=== PATIENT | female | born 1935 | race Caucasian/White ===

== ENCOUNTER → 2018-02-07 | Outpatient (CLI) | payer MEDICARE ==
--- NOTE | 2018-02-08 10:49 | MM ---
Reason for exam: screening (asymptomatic). Last mammogram was performed 2 years and 9 months ago. History: Patient is postmenopausal. Family history of breast cancer in sister at age 55. Benign excisional biopsy of the left breast, 1969. Physical Findings: A clinical breast exam by your physician is recommended on an annual basis and results should be correlated with mammographic findings. MG 3D Screening Mammo W/Cad Bilateral CC and MLO view(s) were taken. Prior study comparison: May 09, 2015, bilateral MG screening mammo w CAD. November 15, 2012, mammogram, performed at [facility]. There are scattered fibroglandular densities. Benign appearing bilateral calcifications. No suspicious abnormality. Chronic bilateral nipple inversion. No significant changes when compared with prior studies. ASSESSMENT: Benign, BI-RAD 2 RECOMMENDATION: Routine screening mammogram of both breasts in 1 year.
== END | disposition home or self-care (01) ==
LOC: RADMAMWWP 10:45
PROVIDERS: ATTEND General Practice
DX: Z12.31 Encounter for screening mammogram for malignant neoplasm of breast (principal)
CPT/HCPCS: 77063; 77067

== ENCOUNTER → 2019-12-03 | Outpatient (CLI) | payer MEDICARE | END | disposition home or self-care (01) | LOC: LABWHC1 11:00 | PROVIDERS: ATTEND Internal Medicine Cardiovascular Disease | DX: U07.1 COVID-19 (principal) | CPT/HCPCS: 87635 ==

== ENCOUNTER 2019-12-05 07:56 | Day surgery (SDC) | payer MEDICARE, OTHER ==
[~2019-12-05 07:56] MED LIST: ALPRAZolam 0.25 MG TAB PO PRN; ALPRAZolam 0.5 MG TAB PO PRN; ASPIRIN 325 MG TAB PO STA; ATORVASTATIN 80 MG TAB PO STA; NITROGLYCERIN SL TABS 0.4 MG TAB SUBLINGUAL PRN; SODIUM CHLORIDE 0.9% 1,000 ML in EMPTY BAG 1 BAG IV ONE
[2019-12-05 08:25] LABS: Glucose,Whole Blood 208 mg/dL (75-99)
[2019-12-05] MEDS ORDERED: INSULIN ASPART (NovoLOG) 100 UNIT/ML VIAL SQ ONE (08:32)
[2019-12-05 08:34] LABS: Basophils % (A) 0 %; Eosinophils # (A) 0.3 k/uL (0-0.7); Eosinophils % (A) 4 %; HCT 40.1 % (34.0-46.0); HGB 12.9 gm/dL (11.4-16.0); Lymphocytes # (A) 2.5 k/uL (1.0-4.8); Lymphocytes % (A) 33 %; MCH 30.6 pg (25.0-35.0); MCHC 32.1 g/dL (31.0-37.0); MCV 95.3 fL (80.0-100.0); Mean Platelet Volume 7.6; Monocytes # (A) 0.4 k/uL (0-1.0); Monocytes % (A) 5 %; Neutrophils # (A) 4.4 k/uL (1.3-7.7); Neutrophils % (A) 57 %; Platelet Count 186 k/uL (150-450); RBC 4.21 m/uL (3.80-5.40); WBC 7.8 k/uL (3.8-10.6)
[2019-12-05 08:46] LABS: Calcium 9.6 mg/dL (8.4-10.2); Potassium 4.3 mmol/L (3.5-5.1)
[2019-12-05] MEDS ORDERED: LIDOCAINE 1% INJ 10MG/ML (20 ML MDV) ONE (09:40)
[2019-12-05] MEDS ORDERED: MIDAZOLAM 2 MG/2 ML VIAL IVP ONE (09:51)
[2019-12-05] MEDS ORDERED: LIDOCAINE 1% INJ 10MG/ML (20 ML MDV) SQ ONE (09:53)
[2019-12-05] MEDS ORDERED: fentaNYL (PF) 50 MCG/ML 2 ML AMP ONE (10:09)
[2019-12-05] MEDS ORDERED: CLOPIDOGREL 75 MG TAB ONE (10:11)
[2019-12-05] MEDS ORDERED: fentaNYL (PF) 50 MCG/ML 2 ML AMP IVP ONE (10:11)
[2019-12-05] MEDS ORDERED: BIVALIRUDIN BOLUS 250 MG/50 ML IV ONE (10:19)
[2019-12-05] MEDS ORDERED: DEXTROSE 5% IN WATER 100 ML with AMIODARONE 150 MG IV ONE (10:19)
[2019-12-05] MEDS: NITROGLYCERIN 1000MCG/10ML SYRINGE INTRACORON ONE ×2 (10:26→10:33)
[2019-12-05] MEDS ORDERED: niCARdipine 25 MG/10 ML VIAL ONE (10:33)
[2019-12-05] MEDS ORDERED: niCARdipine Syringe (1,000 mcg/10 mL) INTRACORON ONE (10:36)
[2019-12-05] MEDS ORDERED: IOPAMIDOL-370 125ML BTL INJ ONE (10:37)
[2019-12-05] MEDS ORDERED: NITROGLYCERIN SL TABS 0.4 MG TAB SUBLINGUAL PRN ×2 (10:44→10:56)
[2019-12-05] MEDS ORDERED: CLOPIDOGREL 75 MG TAB PO ONE (10:46)
--- NOTE | 2019-12-05 10:51 | P.PCN ---
Date of Procedure: 12/05/19 Operative Findings: PERCUTANEOUS CORONARY INTERVENTION Performing physician Dario Steele MD, RPVI Procedure performed Successful stenting of the mid left anterior descending artery using 3.25 x 15 mm Xience LESLIE with an excellent angiographic results and reduction of stenosis from 99% to 0% and without any complication Indication This is an 84-year-old female patient was in good physical and mental shape who was experiencing symptoms of chest discomfort concerning for angina patient underwent a heart catheterization by Dr. Pavon and that revealed critical disease involving the mid left anterior descending artery. The decision was made towards percutaneous coronary intervention Approach Right common femoral artery Complication None Level of sedation Moderate with sedation length of 27 minutes Procedure description Please refer to diagnostic heart catheterization was performed by Dr. Pavon earlier today Anticoagulation was initiated using Angiomax was bolused and drip per protocol Subsequently the left main was engaged using a JL 3.5 guide. After that I did cross the lesion in the LAD using a whisper J-wire. Balloon angioplasty was achieved using 2.5 x 12 mm balloon which was inflated under 16 manuel for 20 seconds before I deployed 3.25 x 15 mm Xience LESLIE where the stent was positioned under fluoroscopy guidance and deployed under 16 manuel for 20 seconds. The following angiogram showed an excellent angiographic results and the procedure was completed without any complications Postprocedure management 1. Dual antiplatelet therapy 2. Risk factors modification 3. Follow-up with the patient
[2019-12-05] MEDS ORDERED: MAG HYDROX/AL HYDROX/SIMETH 30 ML CUP PO PRN (10:56)
[2019-12-05] MEDS ORDERED: ATROPINE SULFATE 0.1 MG/ML 10ML SYRINGE IV PRN (10:56)
[2019-12-05] MEDS ORDERED: RX INFO: IV CONTRAST WAS GIVEN 1 EACH MISC MISCELLANE PRN (10:56)
[2019-12-05] MEDS ORDERED: ZOLPIDEM 5 MG TAB PO PRN (10:56)
[2019-12-05] MEDS ORDERED: SODIUM CHLORIDE 0.9% 1,000 ML IV SCH (11:00)
--- NOTE | 2019-12-05 11:09 | CC ---
CARDIAC CATHETERIZATION REPORT INDICATION: Unstable angina. This is an 84-year-old lady who presented to me with symptoms of precordial chest pain, underwent a stress test that did not reveal significant areas of ischemia, but due to persistent chest pain, I advised her to undergo cardiac catheterization. She had been explained of risks, benefits, and alternatives, understood and accepted. PROCEDURE NOTE: After obtaining informed consent, left heart catheterization, coronary angiogram are performed via the right femoral artery standard Mikaela catheters. Patient tolerated the procedure well without any obvious immediate complication. The patient received moderate conscious sedation and total sedation time was 15 minutes. FINDINGS: HEMODYNAMICS: Left ventricular end-diastolic pressure is 12-14 mm. There is no significant gradient across the aortic valve. LEFT VENTRICULOGRAM: Left ventriculogram is not performed. ANGIOGRAPHIC DATA: LEFT MAIN CORONARY ARTERY: Left main coronary artery is a normal-sized vessel and is free of stenosis. Divides into left anterior descending coronary artery and circumflex coronary artery. LAD has a focal 99% stenosis with sluggish distal flow. CIRCUMFLEX CORONARY ARTERY: This is a large dominant vessel and is free of significant stenosis. RIGHT CORONARY ARTERY: This is a nondominant vessel. Free of significant disease. There are [id number]-[id number] collaterals from the distal RCA. CONCLUSION: Focal 95% stenosis in the LAD. PLAN: Patient will undergo angioplasty with stent placement of the same that none. MMODL / IJN: [id number] /
--- NOTE | 2019-12-05 11:15 | LTR ---
DATE OF SERVICE: 12/05/2019 RE: Km Goldstein Dear Josias: I performed cardiac catheterization on Angelita Barbour and a detailed catheterization note is included for your records. The cardiac catheterization reveals a focal 95% stenosis involving LAD and patient will undergo angioplasty with stent placement of the same. Thank you for giving me the privilege of participating with this pleasant lady. Sincerely, MD SURJIT Meyer / KULWINDER: [id number] /
[2019-12-05 11:49] LABS: Glucose,Whole Blood 148 mg/dL (75-99)
[2019-12-05 13:12] VITALS: BMI 40.1
[2019-12-05 16:56] LABS: Glucose,Whole Blood 191 mg/dL (75-99)
[2019-12-05] MEDS: glipiZIDE 10 MG TAB PO SCH (17:15)
[2019-12-05] MEDS: MELOXICAM 7.5 MG TAB PO SCH (20:01)
[2019-12-05 20:06] VITALS: RESP 18
[2019-12-05 20:28] LABS: Glucose,Whole Blood 197 mg/dL (75-99)
[2019-12-05] MEDS ORDERED: ATENOLOL 25 MG TAB PO SCH (21:00)
[2019-12-05] MEDS ORDERED: ATORVASTATIN 10 MG TAB PO SCH (21:00)
[2019-12-06 06:09] LABS: Glucose,Whole Blood 184 mg/dL (75-99)
[2019-12-06] MEDS: glipiZIDE 10 MG TAB PO SCH (06:21)
[2019-12-06 07:15] LABS: Basophils % (A) 0 %; Eosinophils # (A) 0.3 k/uL (0-0.7); Eosinophils % (A) 4 %; HCT 36.6 % (34.0-46.0); HGB 11.7 gm/dL (11.4-16.0); Lymphocytes # (A) 1.7 k/uL (1.0-4.8); Lymphocytes % (A) 26 %; MCH 30.7 pg (25.0-35.0); MCHC 31.9 g/dL (31.0-37.0); MCV 96.5 fL (80.0-100.0); Mean Platelet Volume 7.9; Monocytes # (A) 0.4 k/uL (0-1.0); Monocytes % (A) 6 %; Neutrophils # (A) 4.2 k/uL (1.3-7.7); Neutrophils % (A) 62 %; Platelet Count 150 k/uL (150-450); RBC 3.79 m/uL (3.80-5.40); WBC 6.8 k/uL (3.8-10.6)
[2019-12-06 07:28] LABS: Calcium 8.9 mg/dL (8.4-10.2); Potassium 4.3 mmol/L (3.5-5.1)
[2019-12-06] MEDS ORDERED: ATENOLOL 50 MG TAB PO SCH (09:00)
[2019-12-06] MEDS ORDERED: ASCORBIC ACID 500 MG TAB PO SCH (09:00)
[2019-12-06] MEDS ORDERED: LISINOPRIL 20 MG TAB PO SCH (09:00)
[2019-12-06] MEDS ORDERED: INSULIN DETEMIR (LEVEMIR) 100 UNIT/ML SYR SQ SCH (09:00)
[2019-12-06] MEDS ORDERED: CHOLECALCIFEROL 400 UNIT TAB PO SCH (09:00)
[2019-12-06] MEDS ORDERED: ALLOPURINOL 300 MG TAB PO SCH (09:00)
[2019-12-06] MEDS ORDERED: ASPIRIN 81 MG PO SCH (09:00)
[2019-12-06] MEDS ORDERED: CLOPIDOGREL 75 MG TAB PO SCH (09:00)
[2019-12-06] MEDS ORDERED: NON FORMULARY DRUG (Lutein [Lutein] 20 MG) PO SCH (09:00)
[2019-12-06] MEDS ORDERED: FAMOTIDINE 20 MG TAB PO SCH (09:00)
[2019-12-06] MEDS ORDERED: ISOSORBIDE MONONITRATE ER 60 MG TAB.ER.24H PO SCH (09:00)
[2019-12-06] MEDS: MELOXICAM 7.5 MG TAB PO SCH (09:01)
[2019-12-06 09:12] VITALS: BP 123/63; PULSE 69; TEMP 97.6
--- NOTE | 2019-12-06 10:26 | P.PN ---
Subjective Progress Note Date: 12/06/19 Discharge note This is an 84-year-old female who was brought to the hospital by Dr. Tapia to undergo cardiac catheterization. Patient was having chest discomfort, in spite of a negative stress testing because of the recurrent symptoms she was advised cardiac catheterization. The cath was performed yesterday by Dr. Tapia, subsequent to that patient underwent angioplasty and stenting of the LAD. She was seen and examined this morning, denied any chest pain, breathing stable. Blood pressure 122/60 with a heart rate in the 60s, 97% on room air. White blood cell count 6.8, hemoglobin 11.7, platelet count 150. Sodium 139, potassium 4.3, BUN 18, creatinine 0.8. Objective - Vital Signs Vital signs: Vital Signs Temp 97.6 F 12/06/19 08:00 Pulse 69 12/06/19 08:00 Resp 18 12/06/19 08:00 BP 123/63 12/06/19 08:00 Pulse Ox 97 12/06/19 08:00 Intake & Output 12/05/19 12/06/19 12/06/19 18:59 06:59 18:59 Intake Total 520 100 Output Total 300 400 Balance 520 -300 -300 Weight 121.4 kg 121.5 kg Intake: IV 280 Oral 240 100 Output: Urine 300 400 Other: Voiding Method Bedside Commode Bedside Commode # Voids 1 1 - Exam PHYSICAL EXAMINATION: GENERAL: 84-year-old female in no acute distress at the time of my examination HEENT: Head is atraumatic, normocephalic. Pupils equal, round. Sclera anicteric. Conjunctiva are clear. Mucous membranes of the mouth are moist. Neck is supple. There is no elevated jugular venous pressure. No carotid bruit is heard. HEART EXAMINATION: Heart S1, S2 normal. No murmur or gallop heard. CHEST EXAMINATION: Lungs are clear to auscultation and precussion. No chest wall tenderness is noted on palpation or with deep breathing. ABDOMEN: Soft, obese, nontender. Bowel sounds are heard. No organomegaly noted. EXTREMITIES: 2+ peripheral pulses with no evidence of peripheral edema and no calf tenderness noted. Right groin soft, no evidence of any hematoma. NEUROLOGIC patient is awake, alert and oriented 3 . . - Labs CBC & Chem 7: 12/06/19 06:22 12/06/19 06:22 Labs: Abnormal Lab Results - Last 24 Hours (Table) 12/05/19 12/05/19 12/05/19 Range/Units 11:35 16:31 20:26 RBC (3.80-5.40) m/uL BUN (7-17) mg/dL Glucose (74-99) mg/dL POC Glucose (mg/dL) 148 H 191 H 197 H (75-99) mg/dL 12/06/19 12/06/19 12/06/19 Range/Units 06:07 06:22 06:22 RBC 3.79 L (3.80-5.40) m/uL BUN 18 H (7-17) mg/dL Glucose 181 H (74-99) mg/dL POC Glucose (mg/dL) 184 H (75-99) mg/dL Assessment and Plan Plan: Assessment and plan #1 status post angioplasty and stenting of the LAD #2 diabetes #3 hyperlipidemia #4 hypertension #5 GERD Plan Patient may be discharged home today. Follow-up appointment with Dr. Pavon in the office in one week. Discharge medications include allopurinol 300 mg daily, aspirin 81 mg daily, Tenormin 50 mg in the morning and 20 5 in the evening, Plavix 75 mg daily, vitamin D daily, lisinopril 20 mg daily, Imdur 60 mg daily, sublingual nitroglycerin as needed for chest pain. diabetic meds as per preadmission, Glucophage will be resumed in 48 hours. DNP note has been reviewed, I agree with a documented findings and plan of care. Patient was seen and examined.
== END 2019-12-06 12:01 | disposition home or self-care (01) ==
LOC: CATHCVL 07:56 → 3SCARD 10:42 → CATHCVL 12-06 12:01
PROVIDERS: ATTEND Internal Medicine Cardiovascular Disease
DX: I25.110 Atherosclerotic heart disease of native coronary artery with unstable angina pectoris (principal); I10 Essential (primary) hypertension; E78.5 Hyperlipidemia, unspecified; E11.9 Type 2 diabetes mellitus without complications; K21.9 Gastro-esophageal reflux disease without esophagitis; Z80.3 Family history of malignant neoplasm of breast; Z80.6 Family history of leukemia; Z82.49 Family history of ischemic heart disease and other diseases of the circulatory system; Z79.82 Long term (current) use of aspirin; Z79.4 Long term (current) use of insulin; Z79.899 Other long term (current) drug therapy; Z88.4 Allergy status to anesthetic agent; Z88.0 Allergy status to penicillin
CPT/HCPCS: 93458; 80048 ×2; 85025 ×2; C9600; C1769 ×3; C1760; C1887; C1725; C1894; C1874; J2250; J0282; J2001; J3010; Q9967